=== PATIENT | male | born 1950 | race Caucasian/White ===

== ENCOUNTER 2016-11-14 09:40 | Inpatient (IN) | payer MEDICAID ==
[~2016-11-14] VITALS: Ht 162.6 cm; Wt 82.6 kg
[2016-11-14 09:51] VITALS: BP_SYST 123
[2016-11-14 10:16] LABS: BASOPHILS # (AUTO) 0.1 K/uL (0.0-0.2); EOSINOPHILS % (AUTO) 0.1 % (0.0-4.0); HEMATOCRIT 42.4 % (36-54); LYMPHOCYTES # (AUTO) 0.3 K/uL (1.0-5.5); LYMPHOCYTES % (AUTO) 4.7 % (20.5-51.5); MEAN CORPUSCULAR HEMOGLOBIN 31 pg (27-31); MEAN CORPUSCULAR HGB CONC 33 % (32-36); MEAN CORPUSCULAR VOLUME 92 fL (79.0-98.0); MONOCYTES % (AUTO) 0.7 % (1.7-9.3); NEUTROPHILS # (AUTO) 5.7 K/uL (1.8-7.7); NEUTROPHILS % (AUTO) 93.5 % (40.0-70.0); RED BLOOD CELL COUNT(AUTO) 4.59 MIL/uL (4.2-6.2); RED CELL DISTRIBUTION WIDTH 12.9 % (9.0-15.0); WHITE BLOOD COUNT (AUTO) 6.1 K/uL (4.8-10.8)
[2016-11-14 10:17] LABS: PLATELET COUNT (AUTO) 42 K/uL (130-430)
[2016-11-14 10:33] LABS: CREATININE 1.28 mg/dL (0.55-1.30); POTASSIUM 3.8 mmol/L (3.5-5.1)
[2016-11-14 10:38] LABS: TOTAL BILIRUBIN 6.3 mg/dL (0.0-1.0); TOTAL PROTEIN, SERUM 7.4 g/dL (6.4-8.3)
[2016-11-14 11:36] LABS: BILIRUBIN,URINE 3+ (NEGATIVE); CLARITY/URINE CLEAR (CLEAR); COLOR,URINE AMBER (YELLOW); GLUCOSE,URINE NEGATIVE (NEGATIVE); KETONES,URINE 1+ (NEGATIVE); LEUKOCYTE ESTERASE ,URINE NEGATIVE (NEGATIVE); NITRITE, URINE NEGATIVE (NEGATIVE); PROTEIN URINE 2+ (NEGATIVE); UROBILINOGEN,URINE 0.2 (0.2-1.0)
[2016-11-14 12:03] LABS: BLOOD, URINE TRACE (NEGATIVE)
[2016-11-14 12:19] LABS: BACTERIA,URINE FEW /HPF (None Seen); RBC,URINE 0-3 /HPF (0-3); WBC,URINE 0-3 /HPF (0-3)
[2016-11-14 12:20] LABS: MUCUS,URINE None Seen /LPF (None Seen)
[2016-11-14 18:07] LABS: INR 1.1 (0.80-1.20)
[2016-11-14] MEDS ORDERED: DEXTROSE 50% JECT 50 ML DISP.SYRIN IVP PRN (19:00)
[2016-11-14 20:55] LABS: BILIRUBIN,DIRECT 5.3 mg/dL (0.0-0.3)
[2016-11-14 20:56] LABS: TOTAL BILIRUBIN 6.3 mg/dL (0.0-1.0)
[2016-11-14 22:08] VITALS: BP_SYST 127
[2016-11-14] MEDS ORDERED: MORPHINE 2 MG/ML INJ. SYRINGE IVP PRN (22:15)
[2016-11-15 00:09] VITALS: BP_SYST 141
[2016-11-15] MEDS: D5NS 1,000 ML IV SCH (00:26)
[2016-11-15 04:02] VITALS: BP_SYST 137
[2016-11-15 08:00] VITALS: BP_SYST 136
[2016-11-15 10:16] LABS: HEMATOCRIT 36.8 % (36-54); HEMOGLOBIN 12.6 g/dL (14.0-18.0); MEAN CORPUSCULAR HEMOGLOBIN 31 pg (27-31); MEAN CORPUSCULAR HGB CONC 34 % (32-36); MEAN CORPUSCULAR VOLUME 91 fL (79.0-98.0); PLATELET COUNT (AUTO) 88 K/uL (130-430); RED BLOOD CELL COUNT(AUTO) 4.04 MIL/uL (4.2-6.2); RED CELL DISTRIBUTION WIDTH 13.2 % (9.0-15.0)
[2016-11-15 10:20] LABS: CALCIUM 8.6 mg/dL (8.4-11.0); CREATININE 0.88 mg/dL (0.55-1.30); POTASSIUM 3.2 mmol/L (3.5-5.1)
[2016-11-15 10:21] LABS: WHITE BLOOD COUNT (AUTO) 15.6 K/uL (4.8-10.8)
[2016-11-15 10:25] LABS: ALBUMIN 2.4 g/dL (3.4-4.8); TOTAL BILIRUBIN 4.2 mg/dL (0.0-1.0); TOTAL PROTEIN, SERUM 6.6 g/dL (6.4-8.3)
[2016-11-15 10:57] LABS: ATYPICAL LYMPHOCYTES % 0 % (0-0); BAND % (MANUAL) 3 % (0-6); BASOPHILS % (MANUAL) 0 % (0-2); EOSINOPHILS % (MANUAL) 0 % (0-7); LYMPHOCYTES % (MANUAL) 17 % (20-46); MONOCYTES % (MANUAL) 13 % (0-11)
[2016-11-15 12:57] VITALS: BP_SYST 142
[2016-11-15 18:42] VITALS: BP_SYST 146
[2016-11-15 19:40] VITALS: BP_SYST 137
[2016-11-16 00:35] VITALS: BP_SYST 128
[2016-11-16 04:19] VITALS: BP_SYST 140
[2016-11-16] MEDS: D5NS 1,000 ML IV SCH ×2 (04:20→21:00)
[2016-11-16 09:13] LABS: BASOPHILS # (AUTO) 0.1 K/uL (0.0-0.2); BASOPHILS % (AUTO) 0.6 % (0.0-2.0); EOSINOPHILS # (AUTO) 0.1 K/uL (0.0-0.4); EOSINOPHILS % (AUTO) 1.1 % (0.0-4.0); HEMATOCRIT 39.3 % (36-54); LYMPHOCYTES % (AUTO) 22.5 % (20.5-51.5); MEAN CORPUSCULAR HEMOGLOBIN 30 pg (27-31); MEAN CORPUSCULAR HGB CONC 33 % (32-36); MEAN CORPUSCULAR VOLUME 91 fL (79.0-98.0); MONOCYTES # (AUTO) 0.8 K/uL (0.0-1.0); MONOCYTES % (AUTO) 9.1 % (1.7-9.3); NEUTROPHILS # (AUTO) 5.8 K/uL (1.8-7.7); NEUTROPHILS % (AUTO) 66.7 % (40.0-70.0); PLATELET COUNT (AUTO) 104 K/uL (130-430); RED BLOOD CELL COUNT(AUTO) 4.33 MIL/uL (4.2-6.2); RED CELL DISTRIBUTION WIDTH 13.4 % (9.0-15.0); WHITE BLOOD COUNT (AUTO) 8.8 K/uL (4.8-10.8)
[2016-11-16 09:18] LABS: CALCIUM 8.3 mg/dL (8.4-11.0); CREATININE 0.81 mg/dL (0.55-1.30)
[2016-11-16 09:23] LABS: ALBUMIN 2.6 g/dL (3.4-4.8); BILIRUBIN,DIRECT 2.1 mg/dL (0.0-0.3); TOTAL BILIRUBIN 2.6 mg/dL (0.0-1.0); TOTAL PROTEIN, SERUM 6.2 g/dL (6.4-8.3)
[2016-11-16 11:21] VITALS: BP_SYST 133
[2016-11-16 15:23] VITALS: BP_SYST 121
[2016-11-16 20:00] VITALS: BP_SYST 139
[2016-11-17 00:19] VITALS: BP_SYST 150
[2016-11-17 03:59] VITALS: BP_SYST 126
[2016-11-17] MEDS: INSULIN REGULAR, HUMAN 100 UNITS/ML, 10 ML VIAL (novoLIN R) SUBCUT PRN ×3 (06:30→17:51)
[2016-11-17 07:24] LABS: BASOPHILS % (AUTO) 0.3 % (0.0-2.0); EOSINOPHILS # (AUTO) 0.1 K/uL (0.0-0.4); EOSINOPHILS % (AUTO) 1.5 % (0.0-4.0); HEMATOCRIT 36.8 % (36-54); HEMOGLOBIN 12.7 g/dL (14.0-18.0); LYMPHOCYTES # (AUTO) 2.7 K/uL (1.0-5.5); LYMPHOCYTES % (AUTO) 34.4 % (20.5-51.5); MEAN CORPUSCULAR HEMOGLOBIN 31 pg (27-31); MEAN CORPUSCULAR HGB CONC 35 % (32-36); MEAN CORPUSCULAR VOLUME 90 fL (79.0-98.0); MONOCYTES # (AUTO) 0.8 K/uL (0.0-1.0); MONOCYTES % (AUTO) 10.1 % (1.7-9.3); NEUTROPHILS # (AUTO) 4.3 K/uL (1.8-7.7); NEUTROPHILS % (AUTO) 53.7 % (40.0-70.0); PLATELET COUNT (AUTO) 117 K/uL (130-430); RED CELL DISTRIBUTION WIDTH 13.3 % (9.0-15.0); WHITE BLOOD COUNT (AUTO) 7.9 K/uL (4.8-10.8)
[2016-11-17 08:06] LABS: ALBUMIN 2.5 g/dL (3.4-4.8); BILIRUBIN,DIRECT 1.2 mg/dL (0.0-0.3); TOTAL BILIRUBIN 1.8 mg/dL (0.0-1.0); TOTAL PROTEIN, SERUM 7.1 g/dL (6.4-8.3)
[2016-11-17] MEDS: D5NS 1,000 ML IV SCH (09:33)
[2016-11-17 12:02] VITALS: BP_SYST 146
[2016-11-17 16:00] VITALS: BP_SYST 138
[2016-11-17 18:28] VITALS: BP_SYST 152
== END 2016-11-17 19:46 | disposition home or self-care (01) ==
LOC: SED 09:40 → SMU 19:10
PROVIDERS: ADMIT Internal Medicine Hospice and Palliative Medicine; ATTEND Internal Medicine Hospice and Palliative Medicine
PROC: 30233R1 Transfusion of Nonautologous Platelets into Peripheral Vein, Percutaneous Approach (ICD-10-PCS; principal; 2016-11-14)
DX: K83.1 Obstruction of bile duct (principal); D69.6 Thrombocytopenia, unspecified; K83.9 Disease of biliary tract, unspecified; E11.9 Type 2 diabetes mellitus without complications; I10 Essential (primary) hypertension; Z90.49 Acquired absence of other specified parts of digestive tract
CPT/HCPCS: 36415; 74181; 76700-TC; 80053; 80076; 81000-TC; 82247-TC; 82248-TC; 82962; 83615-TC; 83690-TC; 85007; 85025; 85027; 85610-TC; 85730-TC; 86900; 86901; 99285; J1815; J2270; J7042; J7050; P9034

== ENCOUNTER 2020-03-21 13:14 | Emergency (ER) | payer MEDICAID, SELFPAY ==
[~2020-03-21] VITALS: Ht 167.6 cm; Wt 81.6 kg
[2020-03-21 13:21] VITALS: BP_SYST 156
--- NOTE | 2020-03-21 13:24 | NUR ---
AMBULATED TO BED1
--- NOTE | 2020-03-21 13:30 | NUR ---
Patient presented to ER C/O Foot pain. Patient ambulatory to ER, afebrile, skin pink & warm, puncture wound to left, denies N/V/D, pain 5/10. Patient states he stepped on nail 1 week ago.
--- NOTE | 2020-03-21 13:58 | NUR ---
ER Dr. Jimenes at bedside examining patient.
[2020-03-21] MEDS ORDERED: DIPH-TET-PERTUS Vaccine 0.5 ML VIAL (ADACEL) I.M. ONE (14:00)
[2020-03-21] MEDS ORDERED: IBUPROFEN 800 MG TABLET PO ONE (14:00)
[2020-03-21] MEDS ORDERED: levoFLOXacin 500 MG TABLET PO ONE (14:00)
--- NOTE | 2020-03-21 14:25 | NUR ---
ER at bedside discussing treatment patient.
[2020-03-21 15:11] VITALS: BP_SYST 135
--- NOTE | 2020-03-21 15:12 | NUR ---
Patient given written and verbal discharge instructions and verbalizes understanding. ER MD discussed with patient the results and treatment provided. Patient in stable condition. ID arm band removed. IV catheter removed intact and dressing applied, no active bleeding. Rx of CIPRO, MOTRIN given. Patient educated on pain management and to follow up with PMD. Pain Scale 0/10 Opportunity for questions provided and answered. Medication side effect fact sheet provided.
== END 2020-03-21 15:11 | disposition home or self-care (01) ==
LOC: SED 13:14
DX: S91.331A Puncture wound without foreign body, right foot, initial encounter (principal); I10 Essential (primary) hypertension; E11.9 Type 2 diabetes mellitus without complications; E78.00 Pure hypercholesterolemia, unspecified; W21.31XA Struck by shoe cleats, initial encounter; Y93.89 Activity, other specified; Y92.89 Other specified places as the place of occurrence of the external cause; Y99.8 Other external cause status
CPT/HCPCS: 82962; 90715; 99283

== ENCOUNTER 2020-05-18 19:49 | Emergency (ER) | payer MEDICAID, SELFPAY ==
[~2020-05-18] VITALS: Ht 167.6 cm; Wt 86.2 kg
[2020-05-18] MEDS ORDERED: FLUORESCEIN SODIUM 1 MG OPHTHALMIC STRIP OP ONE (19:50)
[2020-05-18] MEDS ORDERED: TETRACAINE HCL/PF 0.5% OPHTHALMIC DROPS 4 ML OP ONE (19:50)
[2020-05-18] MEDS ORDERED: BALANCED SALT IRRIG SOLN 15 ML IO ONE (19:50)
[2020-05-18 19:59] VITALS: BP_SYST 154
[2020-05-18] MEDS ORDERED: DIPH-TET-PERTUS Vaccine 0.5 ML VIAL (ADACEL) I.M. ONE (21:00)
[2020-05-18 22:27] VITALS: BP_SYST 142
== END 2020-05-18 22:27 | disposition home or self-care (01) ==
LOC: SED 19:49
DX: T15.02XA Foreign body in cornea, left eye, initial encounter (principal); I10 Essential (primary) hypertension; E11.9 Type 2 diabetes mellitus without complications; E78.00 Pure hypercholesterolemia, unspecified; X58.XXXA Exposure to other specified factors, initial encounter; Y93.89 Activity, other specified; Y92.89 Other specified places as the place of occurrence of the external cause; Y99.8 Other external cause status
CPT/HCPCS: 70480; 76376; 90715; 99284